=== PATIENT | female | born 1930 | race Two or more races ===

== ENCOUNTER 2018-11-10 15:35 | Inpatient (IN) | payer OTHER ==
[2018-11-10] MEDS ORDERED: DOCUSATE SODIUM 100 MG CAP PO (16:00)
[2018-11-10] MEDS ORDERED: NACL 0.9% 3 ML SYG IV (16:00)
[2018-11-10] MEDS ORDERED: ACETAMINOPHEN 325 MG TAB PO (16:00)
[2018-11-10] MEDS ORDERED: HYDROCODONE/APAP (5/325) TAB PO (16:00)
[2018-11-10] MEDS ORDERED: ONDANSETRON 4 MG INJ IV (16:00)
[2018-11-10] MEDS: CARBIDOPA/LEVODOPA (25/250) TAB PO ×2 (17:00→22:45)
[2018-11-10 17:22] LABS: ALANINE AMINOTRANSFERASE 13 IU/L (13-69); ALKALINE PHOSPHATASE 61 IU/L (42-121); ANION GAP 7 (5-13); ASPARTATE AMINO TRANSFERASE 21 IU/L (15-46); BILIRUBIN,INDIRECT 0.3 mg/dl (0-1.1); BILIRUBIN,TOTAL 0.3 mg/dl (0.2-1.3); BLOOD UREA NITROGEN 13 mg/dl (7-20); CALCIUM 9.3 mg/dl (8.4-10.2); CARBON DIOXIDE 31 mmol/L (21-31); CHLORIDE 95 mmol/L (97-110); CREATININE 0.68 mg/dl (0.44-1.00); GLUCOSE 144 mg/dl (70-220); POTASSIUM 4.1 mmol/L (3.5-5.1); SODIUM 133 mmol/L (135-144)
[2018-11-10 17:52] LABS: CARCINOEMBRYONIC ANTIGEN 0.9 ng/ml (0.0-5.0)
[2018-11-10] MEDS: FERROUS SULFATE (EC) 325 MG TAB PO (20:55)
[2018-11-10] MEDS: ATORVASTATIN 10 MG TAB PO (20:55)
[2018-11-10] MEDS: SERTRALINE 50 MG TAB PO (20:55)
[2018-11-10] MEDS: SENNA TAB PO (20:55)
[2018-11-10] MEDS ORDERED: HEPARIN 5,000 UNIT/0.5 ML VIAL SC (22:00)
[2018-11-10] MEDS: CALCIUM CARBONATE 1.25 GM TAB PO (22:44)
[2018-11-10] MEDS: HEPARIN 5,000 UNIT/1 ML VIAL SC (22:47)
[2018-11-11 05:02] LABS: ADD MAN DIFF? NO
[2018-11-11 05:08] LABS: BASOPHILS % 0.5 % (0.0-2.0); EOSINOPHILS # 0.2 10^3/ul (0.0-0.5); EOSINOPHILS % 2.2 % (0.0-7.0); HEMATOCRIT 29.8 % (37.0-47.0); HEMOGLOBIN 9.6 g/dl (12.0-16.0); LYMPHOCYTES % 11.6 % (15.0-51.0); MEAN CORPUSCULAR HEMOGLOBIN 22.9 pg (29.0-33.0); MEAN CORPUSCULAR HGB CONC 32.2 g/dl (32.0-37.0); MEAN PLATELET VOLUME 9.5 fl (7.4-10.4); MONOCYTES % 11.7 % (0.0-11.0); NEUTROPHIL # 6.4 10^3/ul (1.6-7.5); NEUTROPHILS % 73.3 % (39.0-77.0); PLATELET COUNT 386 10^3/UL (140-415); RED CELL DISTRIBUTION WIDTH 15.2 % (11.5-14.5)
[2018-11-11 05:08] LABS: WHITE BLOOD COUNT 8.7 10^3/ul (4.8-10.8)
[2018-11-11] MEDS: PANTOPRAZOLE (EC) 40 MG TAB PO (05:40)
[2018-11-11] MEDS: HEPARIN 5,000 UNIT/1 ML VIAL SC (05:42)
[2018-11-11 05:51] LABS: ANION GAP 6 (5-13); BLOOD UREA NITROGEN 12 mg/dl (7-20); CARBON DIOXIDE 31 mmol/L (21-31); CHLORIDE 97 mmol/L (97-110); CREATININE 0.63 mg/dl (0.44-1.00); GLUCOSE 115 mg/dl (70-220); MAGNESIUM 1.4 mg/dl (1.7-2.5); PHOSPHORUS 4.6 mg/dl (2.5-4.9); POTASSIUM 3.5 mmol/L (3.5-5.1); SODIUM 134 mmol/L (135-144)
[2018-11-11] MEDS ORDERED: PANTOPRAZOLE (EC) 40 MG TAB PO (06:00)
[2018-11-11] MEDS: CARBIDOPA/LEVODOPA (25/250) TAB PO ×3 (08:13→21:00)
[2018-11-11] MEDS: CHOLECALCIFEROL 1,000 UNIT TAB PO (08:13)
[2018-11-11] MEDS: SENNA TAB PO ×2 (08:13→21:00)
[2018-11-11] MEDS: FERROUS SULFATE (EC) 325 MG TAB PO (08:13)
[2018-11-11] MEDS: CALCIUM CARBONATE 1.25 GM TAB PO ×2 (08:13→21:00)
[2018-11-11] MEDS: PROPRANOLOL 10 MG TAB PO (08:14)
[2018-11-11] MEDS: LOSARTAN 50 MG TAB PO (08:14)
[2018-11-11] MEDS: HYDROCHLOROTHIAZIDE 12.5 MG CAP PO (08:14)
[2018-11-11] MEDS: MAGNESIUM SULFATE 4 GM/100 ML 100 ML IVPB (12:24)
[2018-11-11] MEDS: FUROSEMIDE 20 MG INJ IV (13:08)
[2018-11-11 14:52] LABS: CA27.29 28 U/mL (<38)
[2018-11-11 15:51] LABS: HEMATOCRIT 32.7 % (37.0-47.0); HEMOGLOBIN 10.1 g/dl (12.0-16.0)
[2018-11-11] MEDS: SERTRALINE 50 MG TAB PO (21:00)
[2018-11-11] MEDS: ATORVASTATIN 10 MG TAB PO (21:00)
[2018-11-12] MEDS: PANTOPRAZOLE (EC) 40 MG TAB PO (05:46)
[2018-11-12] MEDS: FUROSEMIDE 20 MG INJ IV (05:46)
[2018-11-12] MEDS: CHOLECALCIFEROL 1,000 UNIT TAB PO (09:14)
[2018-11-12] MEDS: CARBIDOPA/LEVODOPA (25/250) TAB PO ×3 (09:14→21:11)
[2018-11-12] MEDS: CALCIUM CARBONATE 1.25 GM TAB PO ×2 (09:14→21:11)
[2018-11-12] MEDS: SENNA TAB PO ×2 (09:14→21:12)
[2018-11-12] MEDS: PROPRANOLOL 10 MG TAB PO (09:15)
[2018-11-12 14:56] LABS: INR 0.95; PROTIME 12.8 Sec (11.9-14.9)
[2018-11-12] MEDS: SERTRALINE 50 MG TAB PO (21:11)
[2018-11-12] MEDS: ATORVASTATIN 10 MG TAB PO (21:11)
[2018-11-13 05:14] LABS: ADD MAN DIFF? NO; BASOPHILS % 0.4 % (0.0-2.0); EOSINOPHILS # 0.2 10^3/ul (0.0-0.5); EOSINOPHILS % 2.2 % (0.0-7.0); HEMATOCRIT 31.2 % (37.0-47.0); HEMOGLOBIN 9.6 g/dl (12.0-16.0); LYMPHOCYTES # 0.9 10^3/ul (0.8-2.9); LYMPHOCYTES % 11.9 % (15.0-51.0); MEAN CORPUSCULAR HEMOGLOBIN 22.3 pg (29.0-33.0); MEAN CORPUSCULAR HGB CONC 30.8 g/dl (32.0-37.0); MEAN CORPUSCULAR VOLUME 72.6 fl (82.0-101.0); MEAN PLATELET VOLUME 9.3 fl (7.4-10.4); MONOCYTE # 0.9 10^3/ul (0.3-0.9); MONOCYTES % 11.7 % (0.0-11.0); NEUTROPHIL # 5.6 10^3/ul (1.6-7.5); NEUTROPHILS % 72.9 % (39.0-77.0); PLATELET COUNT 407 10^3/UL (140-415); RED CELL DISTRIBUTION WIDTH 15.6 % (11.5-14.5)
[2018-11-13 05:14] LABS: WHITE BLOOD COUNT 7.7 10^3/ul (4.8-10.8)
[2018-11-13 05:30] LABS: ANION GAP 5 (5-13); BLOOD UREA NITROGEN 20 mg/dl (7-20); CALCIUM 8.6 mg/dl (8.4-10.2); CARBON DIOXIDE 33 mmol/L (21-31); CHLORIDE 94 mmol/L (97-110); CREATININE 0.83 mg/dl (0.44-1.00); GLUCOSE 108 mg/dl (70-220); POTASSIUM 3.5 mmol/L (3.5-5.1); SODIUM 132 mmol/L (135-144)
[2018-11-13 05:31] LABS: PHOSPHORUS 4.7 mg/dl (2.5-4.9)
[2018-11-13 05:31] LABS: MAGNESIUM 1.8 mg/dl (1.7-2.5)
[2018-11-13] MEDS: PANTOPRAZOLE (EC) 40 MG TAB PO (05:41)
[2018-11-13] MEDS: FUROSEMIDE 20 MG INJ IV (05:43)
[2018-11-13] MEDS: CARBIDOPA/LEVODOPA (25/250) TAB PO ×3 (09:00→20:35)
[2018-11-13] MEDS: CHOLECALCIFEROL 1,000 UNIT TAB PO (09:00)
[2018-11-13] MEDS: SENNA TAB PO ×2 (09:00→20:34)
[2018-11-13] MEDS: CALCIUM CARBONATE 1.25 GM TAB PO ×2 (09:00→20:33)
[2018-11-13] MEDS: PROPRANOLOL 10 MG TAB PO (09:01)
[2018-11-13] MEDS: ATORVASTATIN 10 MG TAB PO (20:33)
[2018-11-13] MEDS: SERTRALINE 50 MG TAB PO (20:35)
[2018-11-14 04:59] LABS: ADD MAN DIFF? NO
[2018-11-14 05:03] LABS: WHITE BLOOD COUNT 8.5 10^3/ul (4.8-10.8)
[2018-11-14 05:03] LABS: BASOPHILS % 0.5 % (0.0-2.0); EOSINOPHILS # 0.2 10^3/ul (0.0-0.5); EOSINOPHILS % 2.2 % (0.0-7.0); HEMATOCRIT 31.8 % (37.0-47.0); HEMOGLOBIN 9.9 g/dl (12.0-16.0); LYMPHOCYTES # 0.9 10^3/ul (0.8-2.9); LYMPHOCYTES % 11.1 % (15.0-51.0); MEAN CORPUSCULAR HEMOGLOBIN 22.4 pg (29.0-33.0); MEAN CORPUSCULAR HGB CONC 31.1 g/dl (32.0-37.0); MEAN CORPUSCULAR VOLUME 71.9 fl (82.0-101.0); MEAN PLATELET VOLUME 9.6 fl (7.4-10.4); MONOCYTE # 1.1 10^3/ul (0.3-0.9); NEUTROPHIL # 6.1 10^3/ul (1.6-7.5); NEUTROPHILS % 72.1 % (39.0-77.0); PLATELET COUNT 427 10^3/UL (140-415); RED BLOOD COUNT 4.42 10^6/ul (4.20-5.40); RED CELL DISTRIBUTION WIDTH 15.5 % (11.5-14.5)
[2018-11-14 05:25] LABS: ANION GAP 7 (5-13); BLOOD UREA NITROGEN 21 mg/dl (7-20); CALCIUM 9.2 mg/dl (8.4-10.2); CARBON DIOXIDE 33 mmol/L (21-31); CHLORIDE 93 mmol/L (97-110); GLUCOSE 108 mg/dl (70-220); POTASSIUM 3.8 mmol/L (3.5-5.1); SODIUM 133 mmol/L (135-144)
[2018-11-14] MEDS: PANTOPRAZOLE (EC) 40 MG TAB PO (05:41)
[2018-11-14] MEDS: FUROSEMIDE 20 MG INJ IV (05:45)
[2018-11-14] MEDS: CHOLECALCIFEROL 1,000 UNIT TAB PO (08:25)
[2018-11-14] MEDS: SENNA TAB PO ×2 (08:25→20:27)
[2018-11-14] MEDS: PROPRANOLOL 10 MG TAB PO (08:25)
[2018-11-14] MEDS: CARBIDOPA/LEVODOPA (25/250) TAB PO ×3 (08:25→20:28)
[2018-11-14] MEDS: CALCIUM CARBONATE 1.25 GM TAB PO ×2 (08:25→20:27)
[2018-11-14] MEDS: ENOXAPARIN 30 MG/0.3 ML SYG SC (08:27)
[2018-11-14] MEDS: ATORVASTATIN 10 MG TAB PO (20:28)
[2018-11-14] MEDS: SERTRALINE 50 MG TAB PO (20:28)
[2018-11-15] MEDS: FUROSEMIDE 20 MG INJ IV (06:24)
[2018-11-15] MEDS: PANTOPRAZOLE (EC) 40 MG TAB PO (06:24)
[2018-11-15] MEDS: PROPRANOLOL 10 MG TAB PO (09:59)
[2018-11-15] MEDS: CARBIDOPA/LEVODOPA (25/250) TAB PO (09:59)
[2018-11-15] MEDS: LIDOCAINE 1% (MPF) 5 ML VIAL (12:22)
== END 2018-11-15 14:15 | disposition home health service (06) | DRG 755 ==
LOC: MS1 15:35
PROC: 0W9B3ZZ Drainage of Left Pleural Cavity, Percutaneous Approach (ICD-10-PCS; principal; 2018-11-15)
PROC: 0W9G3ZZ Drainage of Peritoneal Cavity, Percutaneous Approach (ICD-10-PCS; 2018-11-15)
DX: C56.9 Malignant neoplasm of unspecified ovary (principal); R18.8 Other ascites; C78.6 Secondary malignant neoplasm of retroperitoneum and peritoneum; J91.0 Malignant pleural effusion; G20 Parkinson's disease; E83.42 Hypomagnesemia; I10 Essential (primary) hypertension; E78.5 Hyperlipidemia, unspecified; F41.9 Anxiety disorder, unspecified; F32.9 Major depressive disorder, single episode, unspecified; D50.9 Iron deficiency anemia, unspecified
CPT/HCPCS: 71045; 76604; 76705; 76942; 80048; 80053; 82378; 83735; 84100; 85014; 85018; 85025; 85610; 86300; 86301; 86304; 88104; 88305; 88341; 88342; 99217

== ENCOUNTER 2018-11-17 22:36 | Emergency (ER) | payer OTHER ==
[2018-11-17] MEDS: SOD CHLORIDE 0.9% 1,000 ML IV (23:32)
[2018-11-17 23:34] LABS: ADD MAN DIFF? NO
[2018-11-17 23:36] LABS: WHITE BLOOD COUNT 11.1 10^3/ul (4.8-10.8)
[2018-11-17 23:36] LABS: BASOPHILS % 0.2 % (0.0-2.0); EOSINOPHILS # 0.2 10^3/ul (0.0-0.5); EOSINOPHILS % 1.6 % (0.0-7.0); HEMOGLOBIN 10.1 g/dl (12.0-16.0); LYMPHOCYTES # 0.9 10^3/ul (0.8-2.9); LYMPHOCYTES % 8.1 % (15.0-51.0); MEAN CORPUSCULAR HEMOGLOBIN 22.7 pg (29.0-33.0); MEAN CORPUSCULAR HGB CONC 31.6 g/dl (32.0-37.0); MEAN CORPUSCULAR VOLUME 71.9 fl (82.0-101.0); MEAN PLATELET VOLUME 9.1 fl (7.4-10.4); MONOCYTES % 8.8 % (0.0-11.0); NEUTROPHILS % 80.4 % (39.0-77.0); NUCLEATED RED BLOOD CELLS% 0.2 /100WBC (0.0-0.0); PLATELET COUNT 454 10^3/UL (140-415); RED BLOOD COUNT 4.45 10^6/ul (4.20-5.40)
[2018-11-17 23:52] LABS: ALANINE AMINOTRANSFERASE 8 IU/L (13-69); ALBUMIN 3.2 g/dl (3.3-4.9); ALBUMIN/GLOBULIN RATIO 1.03; ALKALINE PHOSPHATASE 74 IU/L (42-121); ANION GAP 10 (5-13); ASPARTATE AMINO TRANSFERASE 22 IU/L (15-46); BILIRUBIN,INDIRECT 0.2 mg/dl (0-1.1); BILIRUBIN,TOTAL 0.2 mg/dl (0.2-1.3); BLOOD UREA NITROGEN 38 mg/dl (7-20); CALCIUM 8.4 mg/dl (8.4-10.2); CARBON DIOXIDE 28 mmol/L (21-31); CHLORIDE 86 mmol/L (97-110); CREATININE 2.42 mg/dl (0.44-1.00); GLUCOSE 142 mg/dl (70-220); POTASSIUM 3.4 mmol/L (3.5-5.1); SODIUM 124 mmol/L (135-144); TOTAL PROTEIN 6.3 g/dl (6.1-8.1)
[2018-11-18 00:04] LABS: B-TYPE NATRIURETIC PEPTIDE 1560 PG/ML (0-450); TROPONIN-I 0.024 ng/ml (0.000-0.120)
[2018-11-18] MEDS: HYDROCODONE/APAP (10/325) TAB PO (00:25)
== END 2018-11-18 01:02 | disposition home or self-care (01) ==
LOC: E/R 22:36
DX: R53.1 Weakness (principal); I10 Essential (primary) hypertension; Z85.43 Personal history of malignant neoplasm of ovary
CPT/HCPCS: 36415; 71045; 72170; 80053; 83880; 84484; 85025; 93005; 99285-25

== ENCOUNTER 2018-12-01 13:45 | Emergency (ER) | payer OTHER ==
[2018-12-01] MEDS ORDERED: NITROGLYCERIN 2% 1 GM OINT PKT TD (14:55)
[2018-12-01] MEDS ORDERED: ASPIRIN 81 MG TAB PO (14:55)
[2018-12-01] MEDS ORDERED: FUROSEMIDE 40 MG INJ IV (14:55)
[2018-12-01] MEDS ORDERED: NITROGLYCERIN (SL) 0.4 MG TAB SL (15:00)
[2018-12-01 15:21] LABS: ADD MAN DIFF? NO
[2018-12-01 15:28] LABS: HEMATOCRIT 32.8 % (37.0-47.0); HEMOGLOBIN 10.3 g/dl (12.0-16.0); MEAN CORPUSCULAR HEMOGLOBIN 22.3 pg (29.0-33.0); MEAN CORPUSCULAR HGB CONC 31.4 g/dl (32.0-37.0); PLATELET COUNT 528 10^3/UL (140-415); RED BLOOD COUNT 4.62 10^6/ul (4.20-5.40); RED CELL DISTRIBUTION WIDTH 15.8 % (11.5-14.5)
[2018-12-01 15:28] LABS: WHITE BLOOD COUNT 11.9 10^3/ul (4.8-10.8)
[2018-12-01 15:29] LABS: BASOPHILS % 0.3 % (0.0-2.0); EOSINOPHILS % 0.3 % (0.0-7.0); LYMPHOCYTES # 0.9 10^3/ul (0.8-2.9); LYMPHOCYTES % 7.9 % (15.0-51.0); MEAN PLATELET VOLUME 8.4 fl (7.4-10.4); NEUTROPHIL # 9.9 10^3/ul (1.6-7.5); NEUTROPHILS % 82.6 % (39.0-77.0)
[2018-12-01 15:48] LABS: INR 0.95; PARTIAL THROMBOPLASTIN TIME 29.4 Sec (23.0-35.0); PROTIME 12.8 Sec (11.9-14.9)
[2018-12-01 16:01] LABS: ANION GAP 12 (5-13); BLOOD UREA NITROGEN 21 mg/dl (7-20); CALCIUM 8.7 mg/dl (8.4-10.2); CARBON DIOXIDE 22 mmol/L (21-31); CHLORIDE 93 mmol/L (97-110); CREATININE 0.92 mg/dl (0.44-1.00); GLUCOSE 120 mg/dl (70-220); POTASSIUM 4.4 mmol/L (3.5-5.1)
[2018-12-01 16:04] LABS: SODIUM 127 mmol/L (135-144)
[2018-12-01 16:12] LABS: TROPONIN-I < 0.012 ng/ml (0.000-0.120)
[2018-12-01] MEDS: LIDOCAINE 1% (MPF) 5 ML VIAL ×2 (16:39→17:35)
== END 2018-12-01 19:59 | disposition home or self-care (01) ==
LOC: E/R 13:45
DX: J90 Pleural effusion, not elsewhere classified (principal); I11.0 Hypertensive heart disease with heart failure; I50.9 Heart failure, unspecified; R18.8 Other ascites; Z85.43 Personal history of malignant neoplasm of ovary
CPT/HCPCS: 32554; 71045; 76942; 80048; 84484; 85025; 85610; 85730; 93005; 99285-25

== ENCOUNTER 2018-12-18 10:53 | Emergency (ER) | payer OTHER ==
[2018-12-18 11:35] LABS: ADD MAN DIFF? NO
[2018-12-18 11:37] LABS: WHITE BLOOD COUNT 16.2 10^3/ul (4.8-10.8)
[2018-12-18 11:38] LABS: ABNORMAL IP MESSAGE 1; BASOPHILS % 0.1 % (0.0-2.0); EOSINOPHILS % 0.1 % (0.0-7.0); HEMATOCRIT 34.7 % (37.0-47.0); HEMOGLOBIN 10.7 g/dl (12.0-16.0); LYMPHOCYTES # 0.5 10^3/ul (0.8-2.9); MEAN CORPUSCULAR HEMOGLOBIN 21.8 pg (29.0-33.0); MEAN CORPUSCULAR HGB CONC 30.8 g/dl (32.0-37.0); MEAN CORPUSCULAR VOLUME 70.7 fl (82.0-101.0); MEAN PLATELET VOLUME 8.2 fl (7.4-10.4); MONOCYTE # 1.3 10^3/ul (0.3-0.9); MONOCYTES % 8.3 % (0.0-11.0); NEUTROPHIL # 14.1 10^3/ul (1.6-7.5); NEUTROPHILS % 87.2 % (39.0-77.0); NUCLEATED RED BLOOD CELLS% 0.2 /100WBC (0.0-0.0); PLATELET COUNT 387 10^3/UL (140-415); RED BLOOD COUNT 4.91 10^6/ul (4.20-5.40); RED CELL DISTRIBUTION WIDTH 16.7 % (11.5-14.5)
[2018-12-18 11:54] LABS: POSITIVE DIFF @See below
[2018-12-18 11:57] LABS: ALANINE AMINOTRANSFERASE 29 IU/L (13-69); ALKALINE PHOSPHATASE 124 IU/L (42-121); ANION GAP 14 (5-13); ASPARTATE AMINO TRANSFERASE 33 IU/L (15-46); BILIRUBIN,INDIRECT 0.4 mg/dl (0-1.1); BILIRUBIN,TOTAL 0.4 mg/dl (0.2-1.3); BLOOD UREA NITROGEN 27 mg/dl (7-20); CALCIUM 8.8 mg/dl (8.4-10.2); CARBON DIOXIDE 19 mmol/L (21-31); CHLORIDE 95 mmol/L (97-110); CREATININE 0.84 mg/dl (0.44-1.00); GLUCOSE 120 mg/dl (70-220); LIPASE 88 U/L (23-300); POTASSIUM 4.8 mmol/L (3.5-5.1); SODIUM 128 mmol/L (135-144)
[2018-12-18 11:58] LABS: INR 1.04; PROTIME 13.7 Sec (11.9-14.9); PT RATIO 1.1
[2018-12-18 12:08] LABS: TROPONIN-I 0.043 ng/ml (0.000-0.120)
[2018-12-18 14:11] LABS: ADD UMIC YES; UR ASCORBIC ACID NEGATIVE (NEGATIVE); UR BACTERIA MODERATE /HPF (NONE SEEN); UR BILIRUBIN (Dip) NEGATIVE (NEGATIVE); UR BLOOD (Dip) NEGATIVE (NEGATIVE); UR CLARITY SLIGHTLY CLOUDY (CLEAR); UR COLOR AMBER (YELLOW); UR GLUCOSE (Dip) NEGATIVE (NEGATIVE); UR KETONES (Dip) 1+ mg/dL (NEGATIVE); UR LEUKOCYTE ESTERASE (Dip) 3+ Leu/ul (NEGATIVE); UR MUCUS MODERATE /HPF (NONE SEEN); UR NITRITE (Dip) NEGATIVE (NEGATIVE); UR RBC 4 /HPF (0-5); UR SPECIFIC GRAVITY (Dip) 1.024 (1.003-1.030); UR TOTAL PROTEIN (Dip) 1+ mg/dl (NEGATIVE); UR UROBILINOGEN (Dip) 1+ mg/dL (NEGATIVE); UR WBC 27 /HPF (0-5)
[2018-12-18] MEDS: LIDOCAINE 1% (MPF) 5 ML VIAL ×2 (14:58→16:02)
[2018-12-18] MEDS: LEVOFLOXACIN 750MG/D5W (PMX) 150 ML IVPB (16:12)
== END 2018-12-18 17:42 | disposition home or self-care (01) ==
LOC: E/R 10:53
DX: J90 Pleural effusion, not elsewhere classified (principal); I11.0 Hypertensive heart disease with heart failure; I50.9 Heart failure, unspecified; R18.0 Malignant ascites; N30.00 Acute cystitis without hematuria; D72.829 Elevated white blood cell count, unspecified; D50.9 Iron deficiency anemia, unspecified; R79.89 Other specified abnormal findings of blood chemistry; E86.9 Volume depletion, unspecified; Z85.118 Personal history of other malignant neoplasm of bronchus and lung; Z85.43 Personal history of malignant neoplasm of ovary
CPT/HCPCS: 32555; 36415; 71045; 80053; 81001; 83690; 84484; 85025; 85610; 93005; 96374; 99285-25